=== PATIENT | female | born 1965 | race Two or more races ===

== ENCOUNTER → 2017-03-16 | Outpatient (CLI) | payer OTHER | LOC: CIMAGING 07:26 | PROVIDERS: ATTEND Family Medicine | DX: Z12.31 Encounter for screening mammogram for malignant neoplasm of breast (principal) ==

== ENCOUNTER → 2018-07-21 | Outpatient (CLI) | payer OTHER | LOC: CIMAGING 07:31 | PROVIDERS: ATTEND Family Medicine | DX: Z12.31 Encounter for screening mammogram for malignant neoplasm of breast (principal) ==

== ENCOUNTER → 2018-09-06 | Outpatient (CLI) | payer OTHER | LOC: BRMIMAGING 14:11 ==